=== PATIENT | female | born 1940 | race Caucasian/White ===

== ENCOUNTER 2016-12-21 22:47 | Observation (INO) | payer MEDICARE, OTHER ==
[~2016-12-21 22:47] MED LIST: Naloxone 0.4 MG/ML SDV IVPUSH ONE
[2016-12-21] MEDS ORDERED: Naloxone 0.4 MG/ML SDV ONE (22:54)
[2016-12-21 23:29] LABS: CHLORIDE,CL 99 mmol/L (98-107); SODIUM,NA 135 mmol/L (136-145)
--- NOTE | 2016-12-21 23:35 | EDM.PDOC ---
ED HPI GENERAL MEDICAL PROBLEM - General Chief Complaint: General Stated Complaint: lethargy Time Seen by Provider: 12/21/16 23:10 Source of Information: Reports: Patient, Family History Limitations: Reports: No Limitations - History of Present Illness INITIAL COMMENTS - FREE TEXT/NARRATIVE: Patient was brought in by EMS after her called for assistance due to patient's complaining of headache/poor equilibrium, fatigue. Took clonazepam and 45mg Restoril at 9pm. Denies taking extra medication. Family notes that in past she had similar issues when overusing clonazepam. Both patient and family say that she has had URI type complaints this past weeks, including sinus congestion and cough. Former smoker, quit "years ago". Denies need for any inhalers. Has had bilateral frontal headache for several days. Also "buzzing" sound in ears at times. Admits to losing balance three times over the last few days when she tries to back up when standing. Fell but denies injury. Denies vision change, ear pain, sore throat. Wears dentures. Has cough, some congestion. Denies wheezing/SOB. No new pain other than the headache. Denies GI and changes. No focal neuro changes/weakness per patient. No one else sick at home. - Related Data Allergies Allergy/AdvReac Type Severity Reaction Status Date / Time No Known Allergies Allergy Verified 05/18/13 19:32 Home Meds: Home Meds ClonazePAM [KlonoPIN] 0.5 mg PO BID 05/18/13 [History] Diltiazem HCl [Diltiazem 12Hr ER] 120 mg PO DAILY 05/18/13 [History] Lutein/Minerals/Vit A,C & E [Ocuvite] 2 tab PO DAILY 05/18/13 [History] Metoprolol Tartrate 25 mg PO DAILY 05/18/13 [History] Temazepam [Restoril] 45 mg PO BEDTIME PRN 05/18/13 [History] Calcium Carbonate/Vitamin D3 [Calcium 500 + Vit D 400] 1 tab PO DAILY 12/21/16 [ History] Digoxin [Digox] 125 mcg PO DAILY 12/21/16 [History] Lisdexamfetamine Dimesylate [Vyvanse] 50 mg PO DAILY 12/21/16 [History] Multivitamin [Multivitamins] 1 cap PO DAILY 12/21/16 [History] Vilazodone Hydrochloride [Viibryd] 40 mg PO BID 12/21/16 [History] Warfarin [Coumadin] 5 mg PO ASDIRECTED 12/21/16 [History] Ascorbic Acid [Vitamin C] 500 mg PO DAILY 12/22/16 [History] Melatonin 5 mg PO BEDTIME 12/22/16 [History] Past Medical History HEENT History: Reports: Macular Degeneration Cardiovascular History: Reports: Afib, High Cholesterol, Hypertension, Other ( See Below) (aortic valve insufficiency) Gastrointestinal History: Reports: Other (See Below) (History gastric bypass) Musculoskeletal History: Reports: Osteoarthritis, Osteoporosis Psychiatric History: Reports: Anxiety, Depression Hematologic History: Reports: B12 Deficiency Social & Family History - Tobacco Use Years of Tobacco use: 30 (Stopped on 03/31/1999) Used Tobacco, but Quit: Yes Month Tobacco Last Used: 6 Second Hand Smoke Exposure: No - Alcohol Use Days Per Week of Alcohol Use: 0 (Occasional wine for holidays) - Recreational Drug Use Recreational Drug Use: No - Living Situation & Occupation Living situation: Reports: , with Family Occupation: Retired ED ROS GENERAL - Review of Systems Review Of Systems: See Below Constitutional: Reports: Fatigue. Denies: Fever, Chills, Malaise, Night Sweats , Diaphoresis, Decreased Appetite, Weight Loss, Weight Gain HEENT: Reports: Rhinitis, Sinus Problem, Vertigo, Other (buzzing sound in ears at times). Denies: Ear Pain, Eye Pain, Throat Pain, Throat Swelling, Vision Change Respiratory: Reports: Cough, Other (congested but no reported sputum). Denies: Shortness of Breath, Wheezing, Pleuritic Chest Pain Cardiovascular: Denies: Chest Pain, Dyspnea on Exertion, Edema, Palpitations, Syncope GI/Abdominal: Reports: No Symptoms : Reports: No Symptoms Musculoskeletal: Reports: No Symptoms Skin: Reports: No Symptoms Neurological: Reports: Dizziness, Headache, Difficulty Walking (backwards). Denies: Confusion, Numbness, Paresthesia, Tingling, Tremors, Trouble Speaking, Change in Speech Psychiatric: Reports: No Symptoms Hematologic/Lymphatic: Reports: No Symptoms ED EXAM, GENERAL - Physical Exam Exam: See Below Exam Limited By: No Limitations General Appearance: Alert, No Apparent Distress, Obese, Other (disheveled appearance) Eye Exam: Bilateral Eye: EOMI, Other (initially both pupils pinpoint and minimally reactive. No nystagmus noted. Pupils 4mm after receiving Narcan. Equal. reactive. ) Ears: Normal External Exam, Normal Canal, Hearing Grossly Normal, Normal TMs Nose: Normal Inspection, Normal Mucosa, No Blood Throat/Mouth: Normal Inspection, Normal Lips, Normal Oropharynx, Normal Voice, No Airway Compromise, Other (dentures) Head: Atraumatic, Normocephalic Neck: Normal Inspection, Supple, Non-Tender, Full Range of Motion. No: Lymphadenopathy (L), Lymphadenopathy (R) Respiratory/Chest: No Respiratory Distress, Lungs Clear, Normal Breath Sounds, No Accessory Muscle Use, Other (some congestion noted when coughing. ) Cardiovascular: Normal Peripheral Pulses, Regular Rate, Rhythm, No Edema, No Murmur Peripheral Pulses: 2+: Radial (L), Radial (R), Dorsalis Pedis (L), Dorsalis Pedis (R) GI/Abdominal: Normal Bowel Sounds, Soft, Non-Tender, No Mass (Female) Exam: Deferred Rectal (Female) Exam: Deferred Back Exam: Normal Inspection. No: CVA Tenderness (L), CVA Tenderness (R), Muscle Spasm, Paraspinal Tenderness, Vertebral Tenderness Extremities: Normal Range of Motion, Non-Tender, No Pedal Edema, Normal Capillary Refill Neurological: Alert, Oriented, CN II-XII Intact, Normal Cognition, Normal Reflexes, No Motor/Sensory Deficits, Other (Speech slightly slow, family not reporting that this is different from patient's baseline.) Psychiatric: Normal Affect, Normal Mood Skin Exam: Warm, Dry, Intact, Normal Color, Other (small abrasion left arm) Course - Orders/Labs/Meds Orders: Active Orders 24 hr Category Date Time Status Peripheral IV Care [RC] . DIRECTED Care 12/21/16 23:12 Ordered Head wo Cont [CT] Stat Exams 12/21/16 23:24 Ordered AMMONIA VENOUS [CHEM] Stat Lab 12/22/16 00:07 Ordered Sodium Chloride 0.9% [Saline Flush] Med 12/21/16 23:12 Ordered 10 ml FLUSH ASDIRECTED PRN Peripheral IV Insertion Adult [OM.PC] Stat Oth 12/21/16 23:12 Ordered Medication Orders Sodium Chloride (Saline Flush) 10 ml FLUSH ASDIRECTED PRN PRN Reason: Keep Vein Open Labs: Laboratory Tests 12/21/16 12/21/16 12/21/16 Range/Units 23:00 23:00 23:00 WBC 10.0 (4.0-10.2) K/uL RBC 3.59 L (3.77-5.09) M/uL Hgb 9.2 L D (11.7-15.5) g/dL Hct 29.4 L (34.0-46.0) % MCV 81.9 L D (84.0-98.0) fL MCH 25.6 L (28.2-33.3) pg MCHC 31.3 L (31.7-36.0) g/dL RDW 16.0 H (11.2-14.1) % Plt Count 346 D (150-350) K/uL Neut % (Auto) 73.9 (45.0-80.0) % Lymph % (Auto) 15.9 (10.0-50.0) % Elbert % (Auto) 9.6 (2.0-14.0) % Eos % (Auto) 0.4 (0.0-5.0) % Baso % (Auto) 0.2 (0.0-2.0) % Neut # (Auto) 7.37 H (1.40-7.00) K/uL Lymph # (Auto) 1.59 (0.50-3.50) K/uL Elbert # (Auto) 0.96 (0.00-1.00) K/uL Eos # (Auto) 0.04 (0.00-0.50) K/uL Baso # (Auto) 0.02 (0.00-0.20) K/uL PT 51.5 H D (9.8-11.7) SEC INR 4.5 Sodium 135 L (136-145) mmol/L Potassium 4.2 (3.5-5.1) mmol/L Chloride 99 (98-107) mmol/L Carbon Dioxide 29.4 (21.0-32.0) mmol/L BUN 11 (7-18) mg/dL Creatinine 0.72 (0.51-1.17) mg/dL Est Cr Clr Drug Dosing TNP Estimated GFR (MDRD) > 60 mL/min Glucose 111 H (74-106) mg/dL Calcium 9.5 (8.5-10.1) mg/dL Total Bilirubin 0.5 (0.2-1.0) mg/dL AST 418 H (15-37) U/L ALT 371 H (12-78) U/L Alkaline Phosphatase 405 H (46-116) IU/L Total Protein 6.7 (6.4-8.2) g/dL Albumin 3.0 L (3.4-5.0) g/dL Specimen Type Urine Color Urine Appearance Urine pH (5.0-9.0) Ur Specific [place] (1.005-1.030) Urine Protein (NEGATIVE) mg/dL Urine Glucose (UA) (NEGATIVE) mg/dL Urine Ketones (NEGATIVE) mg/dL Urine Occult Blood (NEGATIVE) Urine Nitrite (NEGATIVE) Urine Bilirubin (NEGATIVE) Urine Urobilinogen (0.2-1.0) E.U./dL Ur Leukocyte Esterase (NEGATIVE) Urine RBC /HPF Urine WBC /HPF Ur Epithelial Cells /LPF Urine Bacteria (NONE TO FEW) /HPF Digoxin 0.60 L (0.90-2.00) ng/mL 12/21/16 Range/Units 23:40 WBC (4.0-10.2) K/uL RBC (3.77-5.09) M/uL Hgb (11.7-15.5) g/dL Hct (34.0-46.0) % MCV (84.0-98.0) fL MCH (28.2-33.3) pg MCHC (31.7-36.0) g/dL RDW (11.2-14.1) % Plt Count (150-350) K/uL Neut % (Auto) (45.0-80.0) % Lymph % (Auto) (10.0-50.0) % Elbert % (Auto) (2.0-14.0) % Eos % (Auto) (0.0-5.0) % Baso % (Auto) (0.0-2.0) % Neut # (Auto) (1.40-7.00) K/uL Lymph # (Auto) (0.50-3.50) K/uL Elbert # (Auto) (0.00-1.00) K/uL Eos # (Auto) (0.00-0.50) K/uL Baso # (Auto) (0.00-0.20) K/uL PT (9.8-11.7) SEC INR Sodium (136-145) mmol/L Potassium (3.5-5.1) mmol/L Chloride (98-107) mmol/L Carbon Dioxide (21.0-32.0) mmol/L BUN (7-18) mg/dL Creatinine (0.51-1.17) mg/dL Est Cr Clr Drug Dosing Estimated GFR (MDRD) mL/min Glucose (74-106) mg/dL Calcium (8.5-10.1) mg/dL Total Bilirubin (0.2-1.0) mg/dL AST (15-37) U/L ALT (12-78) U/L Alkaline Phosphatase (46-116) IU/L Total Protein (6.4-8.2) g/dL Albumin (3.4-5.0) g/dL Specimen Type Urinvoid Urine Color Yellow Urine Appearance Clear Urine pH 7.0 (5.0-9.0) Ur Specific [place] 1.010 (1.005-1.030) Urine Protein Negative (NEGATIVE) mg/dL Urine Glucose (UA) Negative (NEGATIVE) mg/dL Urine Ketones Negative (NEGATIVE) mg/dL Urine Occult Blood Negative (NEGATIVE) Urine Nitrite Negative (NEGATIVE) Urine Bilirubin Negative (NEGATIVE) Urine Urobilinogen 0.2 (0.2-1.0) E.U./dL Ur Leukocyte Esterase Trace H (NEGATIVE) Urine RBC 0-5 /HPF Urine WBC 0-5 /HPF Ur Epithelial Cells Occasional /LPF Urine Bacteria Occasional (NONE TO FEW) /HPF Digoxin (0.90-2.00) ng/mL Meds: Medications Generic Name Dose Route Start Last Admin Trade Name Freq PRN Reason Stop Dose Admin Sodium Chloride 10 ml 12/21/16 23:12 Saline Flush FLUSH ASDIRECTED PRN Keep Vein Open Discontinued Medications Generic Name Dose Route Start Last Admin Trade Name Freq PRN Reason Stop Dose Admin Naloxone HCl Confirm 12/21/16 22:54 Narcan Administered 12/21/16 22:55 Dose 0.4 mg .ROUTE .STK-MED ONE - Radiology Interpretation CT Results Date: 12/21/16 (No acute changes on head CT) CT Results Time: 23:55 - Re-Assessments/Exams Free Text/Narrative Re-Assessment/Exam: 12/22/16 00:19 Patient admitted for further observation for changes as well as continued neuro checks. May have some degree of contribution from her evening medications, including Clonazepam in regards to tonight's complaints. We did note quick improvement in pupils and level of interaction after patient received Narcan. She has also had cold symptoms for almost a week, which could contribute to labrynthitis type complaints. WBC normal. Hgb just above 9. Patient does not know what her usual range is. Has had gastric bypass surgery and also has notation that she has had B12 deficiency in past. increased LFTs noted. Patient says that is new. INR above ideal range, digoxin below ideal range. Plan at this time is to admit the patient to observation. Will have patient sign release in order to obtain copies of most recent labs from [facility]. Neuro checks will be scheduled. Meclizine ordered. Anticipate observation overnight, with consideration of transfer to [facility] tomorrow if her labs are showing significant deviations from her usual pattern. Patient is safe for general supervision. Departure - Departure Time of Disposition: 00:32 Disposition: Refer to Observation Condition: Good Clinical Impression: Dizziness, nonspecific, Respiratory tract infection, Elevated INR Anemia Qualifiers: Anemia type: B12 deficiency Vitamin B12 deficiency anemia type: unspecified B12 deficiency Qualified Code(s): D51.9 - Vitamin B12 deficiency anemia, unspecified - Discharge Information Referrals: Lilliam Lake PA [Primary Care Provider] - Forms: ED Department Discharge - Problem List & Annotations (1) Anemia SNOMED Code(s): 304241322 Code(s): D64.9 - ANEMIA, UNSPECIFIED Status: Chronic Priority: Low Current Visit: Yes Annotation/Comment:: Microcytic anemia noted, not macrocytic as would be expected with B12 deficiency. May be due to chronic health issues. Will request Fe level. Qualifiers: Qualified Code(s): D51.9 - Vitamin B12 deficiency anemia, unspecified (2) Dizziness, nonspecific SNOMED Code(s): 172146472, 163118200 Code(s): R42 - DIZZINESS AND GIDDINESS Status: Acute Priority: High Current Visit: Yes Annotation/Comment:: May be related to recent URI, cannot rule out contribution from medications (3) Elevated INR SNOMED Code(s): 128733516 Code(s): R79.1 - ABNORMAL COAGULATION PROFILE Status: Acute Priority: Medium Current Visit: Yes (4) Respiratory tract infection SNOMED Code(s): 050699685, 659617187, 008541447 Code(s): J98.8 - OTHER SPECIFIED RESPIRATORY DISORDERS Status: Acute Priority: Medium Current Visit: Yes (5) Hypertension SNOMED Code(s): 23080857 Code(s): I10 - ESSENTIAL (PRIMARY) HYPERTENSION Status: Chronic Priority : Low Current Visit: No (6) Anxiety and depression SNOMED Code(s): 169380972 Code(s): F41.8 - OTHER SPECIFIED ANXIETY DISORDERS Status: Chronic Priority: Low Current Visit: No (7) Insomnia SNOMED Code(s): 644578367 Code(s): G47.00 - INSOMNIA, UNSPECIFIED Status: Chronic Priority: Low Current Visit: No (8) Afib SNOMED Code(s): 59238910 Code(s): I48.91 - UNSPECIFIED ATRIAL FIBRILLATION Status: Chronic Priority: Low Current Visit: No (9) Osteoporosis SNOMED Code(s): 38828206 Code(s): M81.0 - AGE-RELATED OSTEOPOROSIS W/O CURRENT PATHOLOGICAL FRACTURE Status: Chronic Priority: Low Current Visit: No (10) Osteoarthritis SNOMED Code(s): 332155735 Code(s): M19.90 - UNSPECIFIED OSTEOARTHRITIS, UNSPECIFIED SITE Status: Chronic Priority: Low Current Visit: No (11) B12 deficiency SNOMED Code(s): 158875122 Code(s): E53.8 - DEFICIENCY OF OTHER SPECIFIED B GROUP VITAMINS Status: Chronic Priority: Low Current Visit: Yes (12) H/O gastric bypass SNOMED Code(s): 418451082, 00007776, 860280046 Code(s): Z98.890 - OTHER SPECIFIED POSTPROCEDURAL STATES Status: Chronic Priority: Low Current Visit: No - Problem List Review Problem List Initiated/Reviewed/Updated: Yes - My Orders Last 24 Hours: My Active Orders 12/21/16 23:12 Peripheral IV Care [RC] . DIRECTED Sodium Chloride 0.9% [Saline Flush] 10 ml FLUSH ASDIRECTED PRN Peripheral IV Insertion Adult [OM.PC] Stat 12/21/16 23:24 Head wo Cont [CT] Stat 12/22/16 00:07 AMMONIA VENOUS [CHEM] Stat - Assessment/Plan Admission H&P: Please use this note as an admission H&P Last 24 Hours: My Active Orders 12/21/16 23:12 Peripheral IV Care [RC] . DIRECTED Sodium Chloride 0.9% [Saline Flush] 10 ml FLUSH ASDIRECTED PRN Peripheral IV Insertion Adult [OM.PC] Stat 12/21/16 23:24 Head wo Cont [CT] Stat 12/22/16 00:07 AMMONIA VENOUS [CHEM] Stat Assessment:: Fatigue, dizziness, recent URI, falls in patient also noted to have elevated LFTs and INR/PT, as well as subtheraputic Digoxin levels. Suspect viral URI. Patient denies fevers/chills. WBC normal. Plan: Neuro checks q4hr. Continue observation for changes. Meclizine and small amount of IV fluids planned. Will see if we can obtain recent info for labs and visits to [facility] to see if tonight's labs reflect any sudden changes. May need to consider transfer of patient to [facility] if symptoms continue and lab changes are acute.
[2016-12-22] MEDS ORDERED: Sodium Chloride 0.9% 1,000 ML IV ONE (00:54)
[2016-12-22] MEDS ORDERED: Digoxin 250 MCG Tab PO ONE (00:57)
[2016-12-22] MEDS ORDERED: Meclizine 25 MG Tab PO PRN (00:58)
[2016-12-22] MEDS: ClonazePAM 0.5 MG Tab PO SCH ×3 (01:50→17:07)
[2016-12-22] MEDS: Melatonin 3 MG Tab PO SCH ×2 (01:50→20:29)
[2016-12-22] MEDS: Sodium Chloride 0.9% 10 ML Syringe FLUSH PRN ×2 (02:06→21:29)
[2016-12-22] MEDS ORDERED: LISDEXAMFETAMINE DIMESYLATE 50 MG PO SCH (08:00)
[2016-12-22] MEDS ORDERED: VILAZODONE HYDROCHLORIDE 40 MG PO SCH ×2 (08:00→09:00)
[2016-12-22] MEDS: Digoxin 125 MCG Tab PO SCH (08:36)
[2016-12-22] MEDS: Diltiazem 120 MG Cap.CD PO SCH (08:37)
[2016-12-22] MEDS: Metoprolol Tartrate 25 MG Tab PO SCH (08:37)
[2016-12-22 09:24] LABS: CHLORIDE,CL 105 mmol/L (98-107); SODIUM,NA 140 mmol/L (136-145)
[2016-12-22] MEDS ORDERED: traMADol 50 MG Tab PO ONE (09:50)
[2016-12-22] MEDS: LISDEXAMFETAMINE DIMESYLATE 50 MG PO SCH (10:23)
[2016-12-22] MEDS: VILAZODONE HYDROCHLORIDE 40 MG PO SCH (10:24)
--- NOTE | 2016-12-22 15:16 | PCM.PN ---
- General Info Date of Service: 12/22/16 Admission Dx/Problem (Free Text): Admitted due to altered mental status. Also noted to have elevated LFTs, anemia as well as complaint of lightheadedness and recent falls. Recent URI symptoms. Noted to have elevated PT/INR while in ER. Mild improvement after Narcan in ER. Functional Status: Reports: Pain Controlled (Has some soreness left chest wall that she thinks was from one of her falls, improved with Tramadol. ), Tolerating Diet, Ambulating, Urinating. Denies: New Symptoms Pain Score: 2 - Review of Systems General: Reports: Fatigue. Denies: Fever, Weakness, Malaise, Chills, Night Sweats, Appetite HEENT: Reports: Headaches (frontal), Sinus Congestion, Rhinitis. Denies: Ear Pain, Eye Pain, Sore Throat, Visual Changes Pulmonary: Reports: Cough, Other (congested cough, no sputum). Denies: Shortness of Breath, Pleuritic Chest Pain, Hemoptysis, Wheezing Cardiovascular: Reports: Lightheadedness. Denies: Chest Pain, Palpitations, Dyspnea on Exertion, Orthopnea, Edema Gastrointestinal: Reports: No Symptoms Genitourinary: Reports: No Symptoms Musculoskeletal: Denies: Neck Pain, Shoulder Pain, Arm Pain, Hand Pain, Back Pain, Leg Pain, Foot Pain, Joint Pain, Joint Swelling Skin: Reports: Bruising (Some bruising on left side from falls. ) Neurological: Reports: Dizziness, Headache. Denies: Confusion, Numbness, Paresthesia, Seizure, Syncope, Tingling, Tremors, Weakness Psychiatric: Reports: No Symptoms - Patient Data Vitals - Most Recent: Last Vital Signs Temp 36.8 C 12/22/16 12:00 Pulse 68 12/22/16 12:00 Resp 16 12/22/16 12:00 BP 124/65 12/22/16 12:00 Pulse Ox 100 12/22/16 12:00 Weight - Most Recent: 66.088 kg I&O - Last 24 Hours: Intake & Output 12/22/16 12/22/16 12/22/16 06:59 14:59 22:59 Intake Total 300 2320 Output Total 1500 Balance -1200 2320 Lab Results Last 24 Hours: Laboratory Results - last 24 hr 09/24/17 09/24/17 09/24/17 Range/Units 08:00 08:00 08:00 WBC (4.0-10.2) K/uL RBC (3.77-5.09) M/uL Hgb (11.7-15.5) g/dL Hct (34.0-46.0) % MCV (84.0-98.0) fL MCH (28.2-33.3) pg MCHC (31.7-36.0) g/dL RDW (11.2-14.1) % Plt Count (150-350) K/uL Neut % (Auto) (45.0-80.0) % Lymph % (Auto) (10.0-50.0) % [place] % (Auto) (2.0-14.0) % Eos % (Auto) (0.0-5.0) % Baso % (Auto) (0.0-2.0) % Neut # (Auto) (1.40-7.00) K/uL Lymph # (Auto) (0.50-3.50) K/uL [place] # (Auto) (0.00-1.00) K/uL Eos # (Auto) (0.00-0.50) K/uL Baso # (Auto) (0.00-0.20) K/uL PT 42.2 H (9.8-11.7) SEC INR 3.7 Sodium (136-145) mmol/L Potassium (3.5-5.1) mmol/L Chloride (98-107) mmol/L Carbon Dioxide (21.0-32.0) mmol/L BUN (7-18) mg/dL Creatinine (0.51-1.17) mg/dL Est Cr Clr Drug Dosing mL/min Estimated GFR (MDRD) mL/min Glucose (74-106) mg/dL Calcium (8.5-10.1) mg/dL Iron 33 L (50-175) ug/dL TIBC 319 (250-450) ug/dL % Saturation 10.68905 Ferritin (8-388) ng/mL Total Bilirubin (0.2-1.0) mg/dL AST (15-37) U/L ALT (12-78) U/L Alkaline Phosphatase (46-116) IU/L Ammonia 10 L (11-32) umol/L Total Protein (6.4-8.2) g/dL Albumin (3.4-5.0) g/dL 12/22/16 12/22/16 12/22/16 Range/Units 08:00 08:00 08:00 WBC 7.4 (4.0-10.2) K/uL RBC 3.43 L (3.77-5.09) M/uL Hgb 8.8 L (11.7-15.5) g/dL Hct 28.4 L (34.0-46.0) % MCV 82.8 L (84.0-98.0) fL MCH 25.7 L (28.2-33.3) pg MCHC 31.0 L (31.7-36.0) g/dL RDW 16.3 H (11.2-14.1) % Plt Count 330 (150-350) K/uL Neut % (Auto) 67.4 (45.0-80.0) % Lymph % (Auto) 21.1 (10.0-50.0) % [place] % (Auto) 9.8 (2.0-14.0) % Eos % (Auto) 1.6 (0.0-5.0) % Baso % (Auto) 0.1 (0.0-2.0) % Neut # (Auto) 4.97 (1.40-7.00) K/uL Lymph # (Auto) 1.56 (0.50-3.50) K/uL [place] # (Auto) 0.72 (0.00-1.00) K/uL Eos # (Auto) 0.12 (0.00-0.50) K/uL Baso # (Auto) 0.01 (0.00-0.20) K/uL PT (9.8-11.7) SEC INR Sodium 140 (136-145) mmol/L Potassium 4.2 (3.5-5.1) mmol/L Chloride 105 (98-107) mmol/L Carbon Dioxide 28.8 (21.0-32.0) mmol/L BUN 7 (7-18) mg/dL Creatinine 0.62 (0.51-1.17) mg/dL Est Cr Clr Drug Dosing 65.85 mL/min Estimated GFR (MDRD) > 60 mL/min Glucose 89 (74-106) mg/dL Calcium 9.0 (8.5-10.1) mg/dL Iron (50-175) ug/dL TIBC (250-450) ug/dL % Saturation Ferritin 79 (8-388) ng/mL Total Bilirubin 0.4 (0.2-1.0) mg/dL AST 232 H (15-37) U/L ALT 276 H (12-78) U/L Alkaline Phosphatase 350 H (46-116) IU/L Ammonia (11-32) umol/L Total Protein 5.9 L (6.4-8.2) g/dL Albumin 2.6 L (3.4-5.0) g/dL Med Orders - Current: Current Medications Albuterol/Ipratropium (Duoneb 3.0-0.5 Mg/3 Ml) 3 ml NEB Q6HRRT [facility] Clonazepam (Klonopin) 0.5 mg PO BID [facility] Last Admin: 12/22/16 08:20 Dose: Not Given Digoxin (Lanoxin) 125 mcg PO DAILY [facility] Last Admin: 12/22/16 08:36 Dose: 125 mcg Diltiazem HCl (Cardizem Cd) 120 mg PO DAILY [facility] Last Admin: 12/22/16 08:37 Dose: 120 mg Ferrous Sulfate (Slow Release Iron) 160 mg PO DAILY [facility] Meclizine HCl (Antivert) 25 mg PO Q6H PRN PRN Reason: Dizziness Melatonin (Melatonin) 5 mg PO BEDTIME [facility] Last Admin: 12/22/16 01:50 Dose: Not Given Metoprolol Tartrate (Lopressor) 25 mg PO DAILY [facility] Last Admin: 12/22/16 08:37 Dose: 25 mg Non-Formulary Medication (Lisdexamfetamine Dimesylate [Vyvanse]) 0 mg PO DAILY [facility] Last Admin: 12/22/16 10:23 Dose: 50 mg Non-Formulary Medication (Vilazodone Hydrochloride [Viibryd]) 0 mg PO DAILY [facility] Last Admin: 12/22/16 10:24 Dose: 40 mg Sodium Chloride (Saline Flush) 10 ml FLUSH ASDIRECTED PRN PRN Reason: Keep Vein Open Last Admin: 12/22/16 02:06 Dose: 10 ml Discontinued Medications Digoxin (Lanoxin) 250 mcg PO ONETIME ONE Stop: 12/22/16 00:58 Last Admin: 12/22/16 02:04 Dose: 250 mcg Sodium Chloride (Normal Saline) 1,000 mls @ 200 mls/hr IV .BOLUS ONE Stop: 12/22/16 05:53 Last Admin: 12/22/16 02:03 Dose: 200 mls/hr Naloxone HCl (Narcan) Confirm Administered Dose 0.4 mg .ROUTE .STK-MED ONE Stop: 12/21/16 22:55 Last Admin: 12/21/16 22:58 Dose: Not Given Naloxone HCl (Narcan) 0.4 mg IVPUSH ONETIME ONE Stop: 12/21/16 22:46 Last Admin: 12/21/16 22:58 Dose: 0.4 mg Non-Formulary Medication (Lisdexamfetamine Dimesylate [Vyvanse]) 50 mg PO DAILY [facility] Last Admin: 12/22/16 14:41 Dose: Not Given Non-Formulary Medication (Vilazodone Hydrochloride [Viibryd]) 40 mg PO BID [facility] Last Admin: 12/22/16 14:41 Dose: Not Given Non-Formulary Medication (Vilazodone Hydrochloride [Viibryd]) 40 mg PO DAILY [facility] Last Admin: 12/22/16 14:42 Dose: Not Given Non-Formulary Medication (Vilazodone Hydrochloride [Viibryd]) 0 mg PO DAILY [facility] Non-Formulary Medication (Lisdexamfetamine Dimesylate [Vyvanse]) 0 mg PO DAILY [facility] Tramadol HCl (Ultram) 50 mg PO ONETIME ONE Stop: 12/22/16 09:51 Last Admin: 12/22/16 10:19 Dose: 50 mg - Exam Quality Assessment: Supplemental Oxygen General: Alert, Oriented, Cooperative, Other (Improved level of alertness and interaction noted) HEENT: EOMI Neck: Supple Lungs: Normal Respiratory Effort, Decreased Breath Sounds (throughout), Rhonchi (few, sparse). No: Crackles, Rales, Rub, Stridor, Wheezing Cardiovascular: Regular Rate, Regular Rhythm GI/Abdominal Exam: Normal Bowel Sounds, Soft, Non-Tender, No Distention (Female) Exam: Deferred Back Exam: No: CVA Tenderness (L), CVA Tenderness (R), Muscle Spasm, Paraspinal Tenderness, Vertebral Tenderness Extremities: Normal Range of Motion, Non-Tender, No Pedal Edema, Normal Capillary Refill Peripheral Pulses: 2+: Radial (L), Radial (R) Skin: Warm, Dry, Ecchymosis (has some scattered bruises/mild on left ) Neurological: No New Focal Deficit, Normal Speech, Strength Equal Bilateral, Sensation Intact, Other (Speech improved compared to last night, enunciates better. ) Psy/Mental Status: Alert, Normal Affect, Normal Mood - Problem List & Annotations (1) Anemia SNOMED Code(s): 261048218 Code(s): D64.9 - ANEMIA, UNSPECIFIED Status: Chronic Priority: Low Current Visit: Yes Qualifiers: Anemia type: iron deficiency Iron deficiency anemia type: unspecified iron deficiency Qualified Code(s): D50.9 - Iron deficiency anemia, unspecified Annotation/Comment:: Low Fe noted. Supplementation ordered. Slight decrease to 8.8 today, likely dilutional given IV fluids. Recheck of labs planned in AM. Occult blood screen requested. (2) Dizziness, nonspecific SNOMED Code(s): 206925526, 131823245 Code(s): R42 - DIZZINESS AND GIDDINESS Status: Acute Priority: High Current Visit: Yes Annotation/Comment:: May be related to recent URI, cannot rule out contribution from medications. Improved today. (3) Elevated INR SNOMED Code(s): 007726239 Code(s): R79.1 - ABNORMAL COAGULATION PROFILE Status: Acute Priority: Medium Current Visit: Yes Annotation/Comment:: Improved PT/INR today. (4) Respiratory tract infection SNOMED Code(s): 963528094, 166607913, 109484180 Code(s): J98.8 - OTHER SPECIFIED RESPIRATORY DISORDERS Status: Acute Priority: Medium Current Visit: Yes Onset Date: ~12/18/16 Annotation/ Comment:: Continue to feel that recent cough/sinus congestion is likely viral. WBC normal. No fevers. Xray of chest performed today. Questionable changes noted in right lung that could suggest fibrosis vs infiltrate. Patient did have radiation treatments to that side for left sided breast cancer in past. (5) Hypertension SNOMED Code(s): 35197905 Code(s): I10 - ESSENTIAL (PRIMARY) HYPERTENSION Status: Chronic Priority : Low Current Visit: No (6) Anxiety and depression SNOMED Code(s): 013149402 Code(s): F41.8 - OTHER SPECIFIED ANXIETY DISORDERS Status: Chronic Priority: Low Current Visit: No (7) Insomnia SNOMED Code(s): 988910855 Code(s): G47.00 - INSOMNIA, UNSPECIFIED Status: Chronic Priority: Low Current Visit: No (8) Afib SNOMED Code(s): 38378008 Code(s): I48.91 - UNSPECIFIED ATRIAL FIBRILLATION Status: Chronic Priority: Low Current Visit: No (9) Osteoporosis SNOMED Code(s): 20433802 Code(s): M81.0 - AGE-RELATED OSTEOPOROSIS W/O CURRENT PATHOLOGICAL FRACTURE Status: Chronic Priority: Low Current Visit: No (10) Osteoarthritis SNOMED Code(s): 779314609 Code(s): M19.90 - UNSPECIFIED OSTEOARTHRITIS, UNSPECIFIED SITE Status: Chronic Priority: Low Current Visit: No (11) B12 deficiency SNOMED Code(s): 517766123 Code(s): E53.8 - DEFICIENCY OF OTHER SPECIFIED B GROUP VITAMINS Status: Chronic Priority: Low Current Visit: Yes (12) H/O gastric bypass SNOMED Code(s): 517411632, 07379163, 150411399 Code(s): Z98.890 - OTHER SPECIFIED POSTPROCEDURAL STATES Status: Chronic Priority: Low Current Visit: No - Problem List Review Problem List Initiated/Reviewed/Updated: Yes - My Orders Last 24 Hours: My Active Orders 12/22/16 00:50 Patient Status [ADT] Routine Up With Assistance [RC] ASDIRECTED Vital Signs [RC] Q8HR Resuscitation Status Routine 12/22/16 00:52 Oxygen Therapy [RC] 23 Pulse Oximetry [RC] PRN 12/22/16 00:55 OCCULT BLOOD DIAGNOSTIC [OP] Routine 12/22/16 00:58 Meclizine [Antivert] 25 mg PO Q6H PRN 12/22/16 01:15 ClonazePAM [KlonoPIN] 0.5 mg PO BID Melatonin 5 mg PO BEDTIME 12/22/16 08:00 IRON PNL (FE, TIBC, RITO, %SAT) [REF] Routine Digoxin [Lanoxin] 125 mcg PO DAILY Diltiazem [Cardizem CD] 120 mg PO DAILY Metoprolol Tartrate [Lopressor] 25 mg PO DAILY 12/22/16 09:49 Ribs 2V w Chest Lt [CR] Routine 12/22/16 10:15 Lisdexamfetamine Dimesylate [Vyvanse] 0 mg PO DAILY Vilazodone Hydrochloride [Viibryd] 0 mg PO DAILY 12/22/16 15:03 Neuro Check [RC] BID 12/22/16 15:13 RT Aerosol Therapy [RC] ASDIRECTED 12/22/16 15:15 Albuterol/Ipratropium [DuoNeb 3.0-0.5 MG/3 ML] 3 ml NEB Q6HRRT Ferrous Sulfate [Slow Release Iron] 160 mg PO DAILY 12/22/16 Breakfast Heart Healthy Diet [DIET] 12/23/16 05:11 COMPREHENSIVE METABOLIC PN,CMP [CHEM] AM DIGOXIN [CHEM] AM INR,PT,PROTHROMBIN TIME [COAG] AM MAGNESIUM [CHEM] AM VIT D 1,25 DIHYDROXYY [REF] Routine 12/23/16 05:15 CBC WITH AUTO DIFF [HEME] AM - Assessment Assessment:: Improved LOC noted today by both staff and family. Patient also feels better. Admitted to taking a new OTC cold preparation for her URI yesterday. Given the improvement noted overnight with patient's mild slurred speech and level of interaction it is strongly suspected that much of what we observed was medication-induced. Anemia persists, Fe supplementation ordered. Will see if DuoNebs help patient's cough. LFTs also significantly improved today. May have viral cause to their elevation , may also be related to the cold medication that she took. - Plan Plan:: Recheck labs tomorrow, including LFTs, INR, Digoxin. Continue BID neuro checks. PT/OT consult tomorrow. Probably discharge home tomorrow with follow up at [facility] for continued care.
[2016-12-22] MEDS: Albuterol/Ipratropium 3.0-0.5 MG/3 ML Neb Soln NEB SCH ×2 (15:39→20:29)
[2016-12-22] MEDS: Ferrous Sulfate 160 MG TAB.ER PO SCH (15:39)
[2016-12-22] MEDS: Sodium Chloride 0.9% 10 ML Syringe FLUSH SCH (20:29)
[2016-12-22] MEDS ORDERED: traMADol 50 MG Tab PO PRN (20:35)
[2016-12-22] MEDS ORDERED: Azithromycin 500 MG in Sodium Chloride 0.9% 250 ML IV ONE (20:39)
[2016-12-22] MEDS ORDERED: cefTRIAXone 1 GM in Sodium Chloride 0.9% 100 ML IV ONE (20:39)
[2016-12-23] MEDS: Albuterol/Ipratropium 3.0-0.5 MG/3 ML Neb Soln NEB SCH ×3 (01:48→14:38)
[2016-12-23 07:45] LABS: CHLORIDE,CL 105 mmol/L (98-107); SODIUM,NA 140 mmol/L (136-145)
[2016-12-23] MEDS ORDERED: LISDEXAMFETAMINE DIMESYLATE PO SCH (08:00)
[2016-12-23] MEDS ORDERED: VILAZODONE HYDROCHLORIDE PO SCH (08:00)
[2016-12-23 08:19] VITALS: BP 145/78
[2016-12-23] MEDS: Diltiazem 120 MG Cap.CD PO SCH (08:46)
[2016-12-23] MEDS: ClonazePAM 0.5 MG Tab PO SCH (08:47)
[2016-12-23] MEDS: Digoxin 125 MCG Tab PO SCH (08:48)
[2016-12-23] MEDS: LISDEXAMFETAMINE DIMESYLATE 50 MG PO SCH (08:49)
[2016-12-23] MEDS: Metoprolol Tartrate 25 MG Tab PO SCH (08:50)
[2016-12-23] MEDS: Sodium Chloride 0.9% 10 ML Syringe FLUSH SCH (08:50)
[2016-12-23] MEDS: Ferrous Sulfate 160 MG TAB.ER PO SCH (08:51)
[2016-12-23] MEDS: VILAZODONE HYDROCHLORIDE 40 MG PO SCH (08:52)
--- NOTE | 2016-12-23 13:50 | PCM.DCSUM1 ---
Discharge Summary - Hospital Course Brief History: Patient admitted for altered LOC, with noted elevated INR/LFTs - Discharge Data Discharge Date: 12/23/16 Discharge Disposition: Home, Self-Care 01 Condition: Good - Discharge Diagnosis/Problem(s) (1) Anemia SNOMED Code(s): 324723283 ICD Code: D64.9 - ANEMIA, UNSPECIFIED Status: Chronic Priority: Low Current Visit: Yes Problem Details: Low Fe noted. Supplementation ordered. Decrease to 8.6 today.. Qualifiers: Anemia type: iron deficiency Iron deficiency anemia type: unspecified iron deficiency Qualified Code(s): D50.9 - Iron deficiency anemia, unspecified (2) Dizziness, nonspecific SNOMED Code(s): 924668942, 590991549 ICD Code: R42 - DIZZINESS AND GIDDINESS Status: Acute Priority: High Current Visit: Yes Problem Details: May be related to recent URI, cannot rule out contribution from medications. Continues to be improved. Low Hgb also. (3) Elevated INR SNOMED Code(s): 880011596 ICD Code: R79.1 - ABNORMAL COAGULATION PROFILE Status: Acute Priority: Medium Current Visit: Yes Problem Details: At theraputic level today (4) Respiratory tract infection SNOMED Code(s): 947270847, 597951820, 271141875 ICD Code: J98.8 - OTHER SPECIFIED RESPIRATORY DISORDERS Status: Acute Priority: Medium Current Visit: Yes Onset Date: ~12/18/16 Problem Details : Continue to feel that recent cough/sinus congestion is likely viral. WBC normal. Patient started on antibiotics to cover for potential bacterial component due to noted low grade fever. Radiology review of chest films also noted changes in left lower lung and felt it could suggest atelectasis vs early infiltrates. (5) Hypertension SNOMED Code(s): 36885479 ICD Code: I10 - ESSENTIAL (PRIMARY) HYPERTENSION Status: Chronic Priority : Low Current Visit: No (6) Anxiety and depression SNOMED Code(s): 579934478 ICD Code: F41.8 - OTHER SPECIFIED ANXIETY DISORDERS Status: Chronic Priority: Low Current Visit: No (7) Insomnia SNOMED Code(s): 007840961 ICD Code: G47.00 - INSOMNIA, UNSPECIFIED Status: Chronic Priority: Low Current Visit: No (8) Afib SNOMED Code(s): 75555823 ICD Code: I48.91 - UNSPECIFIED ATRIAL FIBRILLATION Status: Chronic Priority: Low Current Visit: No (9) Osteoporosis SNOMED Code(s): 89421226 ICD Code: M81.0 - AGE-RELATED OSTEOPOROSIS W/O CURRENT PATHOLOGICAL FRACTURE Status: Chronic Priority: Low Current Visit: No (10) Osteoarthritis SNOMED Code(s): 083002799 ICD Code: M19.90 - UNSPECIFIED OSTEOARTHRITIS, UNSPECIFIED SITE Status: Chronic Priority: Low Current Visit: No (11) H/O gastric bypass SNOMED Code(s): 779907134, 10936484, 887362973 ICD Code: Z98.890 - OTHER SPECIFIED POSTPROCEDURAL STATES Status: Chronic Priority: Low Current Visit: No (12) Rib pain on left side SNOMED Code(s): 286993434 ICD Code: R07.81 - PLEURODYNIA Status: Acute Priority: Low Current Visit: Yes Problem Details: Patient has had left sided discomfort since admission that she feels started after one of her recent falls. Radiology noted mild deformity of 7th rib but is not certain if it could represent an acute fracture vs chronic condition. (13) Occult blood positive stool SNOMED Code(s): 44038146, 698792350 ICD Code: R19.5 - OTHER FECAL ABNORMALITIES Status: Acute Priority: High Current Visit: Yes Problem Details: No reported changes in stool color/ consistency per patient. No abdominal pain or GI complaints at this time. Scheduled for endoscopy this , 3 days from now. - Patient Summary/Data Complications: None Consults: Consultations 12/22/16 15:31 PT Evaluation and Treatment [CONS] Routine 12/22/16 15:32 OT Evaluation and Treatment [CONS] Routine Recommended Follow-up Testing/Procedures: Patient needs to follow up this week for recheck of Hgb, LFTs, and INR. Endoscopy scheduled for due to +Occult blood screen Has follow up appointment with primary provider for pre-op physical at 2pm in [place]. Hospital Course: Rapid improvement in LOC noted within 12 hours of admission. Strongly felt that medication interactions/over-medication and non-compliance contributed to complaints of slurred speech/lethargy/dizziness and falls. It was noted during patient's stay that multiple colors of pills were mixed together in some medication bottles. Patient said that she sometimes dumps new prescriptions in with the old. However, it was noted by Pharmacy that some medications were in the wrong bottles, such as Warfarin mixed in with Restoril. This may explain the elevated INR noted upon admission. Pharmacy spent a significant amount of time with the patient reviewing concerns about the medications and medication handling at home and recommended steps to help avoid similar problems in the future. Patient started on antibiotics due to suspected early infiltrate left lower lung. LFTs quite elevated at time of admission. Noted rapid improvement over course of stay. Suspect this is also related to medications that are both prescribed in addition to OTC cold meds patient was taken. Hgb noted to be low upon admission. Further drop noted that was felt to be likely dilutional in nature. However was noted to be positive for occult blood in stool. Patient denies dark stools/bloody stools or problems with hemorrhoids. Given Protonix. Has been placed on schedule for endoscopy for of this week. Patient did have INR of 4.5 initially, and this may have contributed to GI blood loss. INR is now within theraputic range. Will have patient continue to hold Warfarin until after colonoscopy. - Patient Instructions Diet: Usual Diet as Tolerated (Will need to start prep for endoscopy as scheduled. ) Activity: As Tolerated Driving: Do Not Drive Showering/Bathing: May Shower Other/Special Instructions: Follow up tomorrow at clinic in [place] at 2pm for pre-op physical and review of your medications. You will need your INR, hemoglobin, and liver function tests repeated this week. Begin prep as instructed for scheduled endoscopy this . Take medications as directed. No over the counter meds or Tylenol at this time. Recommend decreasing Restoril dose to 30mg instead of 45. Do not restart Warfarin until instructed to do so after endoscopy. - Discharge Plan Prescriptions/Med Rec: Azithromycin [IJP: Azithromycin] 250 mg PO DAILY #4 tab Ferrous Sulfate [Slow Release Iron] 160 mg PO DAILY #30 tab.er Pantoprazole Sodium [Protonix] 40 mg PO DAILY #30 tablet. traMADol [Ultram] 50 mg PO Q6H PRN #16 tablet PRN Reason: Pain Home Medications: Home Meds ClonazePAM [KlonoPIN] 0.5 mg PO BID 05/18/13 [History] Diltiazem HCl [Diltiazem 12Hr ER] 120 mg PO DAILY 05/18/13 [History] Lutein/Minerals/Vit A,C & E [Ocuvite] 2 tab PO DAILY 05/18/13 [History] Metoprolol Tartrate 25 mg PO DAILY 05/18/13 [History] Temazepam [Restoril] 45 mg PO BEDTIME PRN 05/18/13 [History] Calcium Carbonate/Vitamin D3 [Calcium 500 + Vit D 400] 1 tab PO DAILY 12/21/16 [ History] Digoxin [Digox] 125 mcg PO DAILY 12/21/16 [History] Lisdexamfetamine Dimesylate [Vyvanse] 50 mg PO DAILY 12/21/16 [History] Multivitamin [Multivitamins] 1 cap PO DAILY 12/21/16 [History] Vilazodone Hydrochloride [Viibryd] 40 mg PO DAILY 12/21/16 [History] Warfarin [Coumadin] 5 mg PO ASDIRECTED 12/21/16 [History] Ascorbic Acid [Vitamin C] 500 mg PO DAILY 12/22/16 [History] Melatonin 5 mg PO BEDTIME 12/22/16 [History] Azithromycin [IJP: Azithromycin] 250 mg PO DAILY #4 tab 12/23/16 [Rx] Ferrous Sulfate [Slow Release Iron] 160 mg PO DAILY #30 tab.er 12/23/16 [Rx] Pantoprazole Sodium [Protonix] 40 mg PO DAILY #30 tablet. 12/23/16 [Rx] traMADol [Ultram] 50 mg PO Q6H PRN #16 tablet 12/23/16 [Rx] Patient Handouts: Esophagogastroduodenoscopy, Colonoscopy, Ceftriaxone injection, Azithromycin for infusion Forms: ED Department Discharge Referrals: Lilliam Lake PA [Primary Care Provider] - - Discharge Summary/Plan Comment DC Time >30 min.: No - General Info Date of Service: 12/23/16 Admission Dx/Problem (Free Text: Admitted due to altered mental status. Also noted to have elevated LFTs, anemia as well as complaint of lightheadedness and recent falls. Recent URI symptoms. Noted to have elevated PT/INR while in ER. Mild improvement after Narcan in ER. Functional Status: Reports: Pain Controlled (still has left sided chest wall discomfort, Improved with Tramadol), Tolerating Diet, Ambulating, Urinating. Denies: New Symptoms - Review of Systems General: Reports: Fever (had low grade temp noted yesterday), Fatigue. Denies: Malaise, Chills, Night Sweats, Appetite HEENT: Reports: Rhinitis Pulmonary: Reports: Pleuritic Chest Pain (left sided chest pain is worse with deep breathing), Cough. Denies: Shortness of Breath, Hemoptysis, Wheezing Cardiovascular: Denies: Palpitations, Dyspnea on Exertion, Orthopnea, Edema Gastrointestinal: Reports: No Symptoms. Denies: Hematochezia, Melena Genitourinary: Reports: No Symptoms Musculoskeletal: Reports: No Symptoms Skin: Reports: No Symptoms Neurological: Reports: No Symptoms Psychiatric: Reports: No Symptoms - Patient Data Vitals - Most Recent: Last Vital Signs Temp 36.2 C 12/23/16 08:00 Pulse 70 12/23/16 08:50 Resp 17 12/23/16 08:00 BP 145/78 H 12/23/16 08:50 Pulse Ox 94 L 12/23/16 08:00 Weight - Most Recent: 66.088 kg I&O - Last 24 hours: Intake & Output 12/22/16 12/23/16 12/23/16 22:59 06:59 14:59 Intake Total 420 1120 Balance 420 1120 Lab Results - Last 24 hrs: Laboratory Results - last 24 hr 12/23/16 12/23/16 12/23/16 Range/Units 07:00 07:00 07:00 WBC 7.4 (4.0-10.2) K/uL RBC 3.36 L (3.77-5.09) M/uL Hgb 8.6 L (11.7-15.5) g/dL Hct 28.1 L (34.0-46.0) % MCV 83.6 L (84.0-98.0) fL MCH 25.6 L (28.2-33.3) pg MCHC 30.6 L (31.7-36.0) g/dL RDW 16.4 H (11.2-14.1) % Plt Count 323 (150-350) K/uL Neut % (Auto) 65.6 (45.0-80.0) % Lymph % (Auto) 24.4 (10.0-50.0) % Dougherty % (Auto) 8.8 (2.0-14.0) % Eos % (Auto) 1.1 (0.0-5.0) % Baso % (Auto) 0.1 (0.0-2.0) % Neut # (Auto) 4.87 (1.40-7.00) K/uL Lymph # (Auto) 1.81 (0.50-3.50) K/uL Dougherty # (Auto) 0.65 (0.00-1.00) K/uL Eos # (Auto) 0.08 (0.00-0.50) K/uL Baso # (Auto) 0.01 (0.00-0.20) K/uL PT 27.0 H D (9.8-11.7) SEC INR 2.4 Sodium 140 (136-145) mmol/L Potassium 3.8 (3.5-5.1) mmol/L Chloride 105 (98-107) mmol/L Carbon Dioxide 27.9 (21.0-32.0) mmol/L BUN 10 (7-18) mg/dL Creatinine 0.59 (0.51-1.17) mg/dL Est Cr Clr Drug Dosing 69.20 mL/min Estimated GFR (MDRD) > 60 mL/min Glucose 87 (74-106) mg/dL Calcium 9.4 (8.5-10.1) mg/dL Magnesium 1.8 (1.8-2.4) mg/dL Total Bilirubin 0.3 (0.2-1.0) mg/dL AST 87 H (15-37) U/L ALT 182 H (12-78) U/L Alkaline Phosphatase 297 H (46-116) IU/L Total Protein 6.1 L (6.4-8.2) g/dL Albumin 2.5 L (3.4-5.0) g/dL Digoxin 0.70 L (0.90-2.00) ng/mL Med Orders - Current: Current Medications Albuterol/Ipratropium (Duoneb 3.0-0.5 Mg/3 Ml) 3 ml NEB Q6HRRT [facility] Last Admin: 12/23/16 08:47 Dose: 3 ml Clonazepam (Klonopin) 0.5 mg PO BID [facility] Last Admin: 12/23/16 08:47 Dose: 0.5 mg Digoxin (Lanoxin) 125 mcg PO DAILY [facility] Last Admin: 12/23/16 08:48 Dose: 125 mcg Diltiazem HCl (Cardizem Cd) 120 mg PO DAILY [facility] Last Admin: 12/23/16 08:46 Dose: 120 mg Ferrous Sulfate (Slow Release Iron) 160 mg PO DAILY [facility] Last Admin: 12/23/16 08:51 Dose: 160 mg Meclizine HCl (Antivert) 25 mg PO Q6H PRN PRN Reason: Dizziness Melatonin (Melatonin) 5 mg PO BEDTIME [facility] Last Admin: 12/22/16 20:29 Dose: 5 mg Metoprolol Tartrate (Lopressor) 25 mg PO DAILY [facility] Last Admin: 12/23/16 08:50 Dose: 25 mg Lisdexamfetamine Dimesylate [Vyvanse] 50mg Caps 0 mg PO DAILY [facility] Last Admin: 12/23/16 08:49 Dose: 50 mg Vilazodone Hydrochloride [ Viibryd] 40mg 0 mg PO DAILY [facility] Last Admin: 12/23/16 08:52 Dose: 40 mg Sodium Chloride (Saline Flush) 10 ml FLUSH ASDIRECTED PRN PRN Reason: Keep Vein Open Last Admin: 12/22/16 21:29 Dose: 10 ml Sodium Chloride (Saline Flush) 10 ml FLUSH Q12HR [facility] Last Admin: 12/23/16 08:50 Dose: 10 ml Tramadol HCl (Ultram) 50 mg PO Q6H PRN PRN Reason: Pain Last Admin: 12/22/16 20:55 Dose: 50 mg Discontinued Medications Digoxin (Lanoxin) 250 mcg PO ONETIME ONE Stop: 12/22/16 00:58 Last Admin: 12/22/16 02:04 Dose: 250 mcg Sodium Chloride (Normal Saline) 1,000 mls @ 200 mls/hr IV .BOLUS ONE Stop: 12/22/16 05:53 Last Admin: 12/22/16 02:03 Dose: 200 mls/hr Azithromycin 500 mg/ Sodium (Chloride) 250 mls @ 250 mls/hr IV ONETIME ONE Stop: 12/22/16 21:38 Last Admin: 12/22/16 21:30 Dose: 250 mls/hr Ceftriaxone Sodium 1 gm/ (Sodium Chloride) 100 mls @ 200 mls/hr IV ONETIME ONE Stop: 12/22/16 21:08 Last Admin: 12/22/16 20:56 Dose: 200 mls/hr Naloxone HCl (Narcan) Confirm Administered Dose 0.4 mg .ROUTE .STK-MED ONE Stop: 12/21/16 22:55 Last Admin: 12/21/16 22:58 Dose: Not Given Naloxone HCl (Narcan) 0.4 mg IVPUSH ONETIME ONE Stop: 12/21/16 22:46 Last Admin: 12/21/16 22:58 Dose: 0.4 mg Non-Formulary Medication (Lisdexamfetamine Dimesylate [Vyvanse]) 50 mg PO DAILY [facility] Last Admin: 12/22/16 14:41 Dose: Not Given Non-Formulary Medication (Vilazodone Hydrochloride [Viibryd]) 40 mg PO BID [facility] Last Admin: 12/22/16 14:41 Dose: Not Given Non-Formulary Medication (Vilazodone Hydrochloride [Viibryd]) 40 mg PO DAILY [facility] Last Admin: 12/22/16 14:42 Dose: Not Given Non-Formulary Medication (Vilazodone Hydrochloride [Viibryd]) 0 mg PO DAILY [facility] Non-Formulary Medication (Lisdexamfetamine Dimesylate [Vyvanse]) 0 mg PO DAILY [facility] Tramadol HCl (Ultram) 50 mg PO ONETIME ONE Stop: 12/22/16 09:51 Last Admin: 12/22/16 10:19 Dose: 50 mg - Exam General: Reports: Alert, Oriented, Cooperative, No Acute Distress HEENT: Reports: Pupils Equal, Pupils Reactive, EOMI, Mucous Membr. Moist/[place] Neck: Reports: Supple Lungs: Reports: Normal Respiratory Effort, Rhonchi (mild, left lower lung). Denies: Rales, Rub, Stridor, Wheezing Cardiovascular: Reports: Regular Rhythm GI/Abdominal Exam: Normal Bowel Sounds, Soft, Non-Tender, No Distention (Female) Exam: Deferred Rectal (Female) Exam: Normal Rectal Tone, Heme + Stool Back Exam: Denies: CVA Tenderness (L), CVA Tenderness (R) Extremities: Non-Tender, Normal Capillary Refill Skin: Reports: Warm, Dry, Intact Neurological: Reports: No New Focal Deficit Psy/Mental Status: Reports: Alert, Normal Affect, Normal Mood *Q Meaningful Use (DIS) - VTE *Q VTE Criteria *Q: - Stroke *Q Stroke Criteria *Q: - AMI *Q AMI Criteria *Q:
[2016-12-23] MEDS ORDERED: Pantoprazole 40 MG Vial IVPUSH ONE (14:20)
== END 2016-12-23 15:50 | disposition home or self-care (01) ==
LOC: LL.ED 22:47 → UNDOADMOB 23:55 → LL.MS 23:55 → UNDODISOB 12-23 15:50
PROVIDERS: ADMIT Emergency Medicine; ATTEND Emergency Medicine
DX: D50.9 Iron deficiency anemia, unspecified (principal); R42 Dizziness and giddiness; R79.1 Abnormal coagulation profile; J98.8 Other specified respiratory disorders; I10 Essential (primary) hypertension; F41.8 Other specified anxiety disorders; G47.00 Insomnia, unspecified; I48.91 Unspecified atrial fibrillation; M19.90 Unspecified osteoarthritis, unspecified site; R07.81 Pleurodynia; R19.5 Other fecal abnormalities; Z98.84 Bariatric surgery status; Z79.01 Long term (current) use of anticoagulants; Z79.899 Other long term (current) drug therapy
CPT/HCPCS: 36415; 70450; 71101; 80053; 80162; 81001; 82140; 82652; 82728; 83540; 83550; 83735; 85025; 85610; 94640; 96365; 96366; 96374; 96375; 97161; 99285; A9270; C9113; G0378; J0456; J0696; J2310; J7030; J7050; 82272; 99217; 99220; 99225

== ENCOUNTER 2016-12-26 08:03 | Day surgery (SDC) | payer MEDICARE, OTHER ==
[~2016-12-26 08:03] MED LIST changes: +Lactated Ringers 1,000 ML IV SCH; -Naloxone 0.4 MG/ML SDV IVPUSH ONE; +Sodium Chloride 0.9% 10 ML Syringe FLUSH PRN
[2016-12-26] MEDS ORDERED: fentaNYL 100 MCG/2 ML SDV ONE ×2 (08:45→09:05)
[2016-12-26] MEDS ORDERED: Midazolam 1 MG/ML 2 ML SDV ONE ×2 (08:45→09:05)
[2016-12-26] MEDS ORDERED: Propofol 200 MG/20 ML SDV ONE ×2 (08:46→09:05)
[2016-12-26] MEDS ORDERED: Lidocaine 2% 5 ML SDV ONE (09:05)
--- NOTE | 2016-12-26 09:06 | PCM.PN ---
- General Info Date of Service: 12/26/16 - Review of Systems Systems Review Comment:: 76 y/o female referred from Rohan Gerardo for EGD and Colonoscopy because of anemia and guiac positive stools. She is medically stable to proceed with no recent significant changes to her health status since her recent admission. I have discussed the proposed upper and lower endoscopy with the patient. Risks reviewed included but were not limited to bleeding and GI injury. She has had a previous colonoscopy about 5 years ago. She agrees to proceed. - Patient Data Vitals - Most Recent: Last Vital Signs Temp 97.8 F 12/26/16 08:23 Pulse 78 12/26/16 08:23 Resp 20 12/26/16 08:23 BP 148/73 H 12/26/16 08:23 Pulse Ox 100 12/26/16 08:23 Weight - Most Recent: 62.596 kg Med Orders - Current: Current Medications Lactated Ringer's (Ringers, Lactated) 1,000 mls @ 125 mls/hr IV ASDIRECTED ISABELLA Last Admin: 12/26/16 08:51 Dose: 125 mls/hr Sodium Chloride (Saline Flush) 10 ml FLUSH ASDIRECTED PRN PRN Reason: Keep Vein Open Discontinued Medications Fentanyl (Sublimaze) Confirm Administered Dose 100 mcg .ROUTE .STK-MED ONE Stop: 12/26/16 08:46 Midazolam HCl (Versed 1 Mg/Ml) Confirm Administered Dose 2 mg .ROUTE .STK-MED ONE Stop: 12/26/16 08:46 Propofol (Diprivan 20 Ml) Confirm Administered Dose 400 mg .ROUTE .STK-MED ONE Stop: 12/26/16 08:47 - Problem List Review Problem List Initiated/Reviewed/Updated: Yes - My Orders Last 24 Hours: My Active Orders 12/26/16 08:00 Patient Status [ADT] Routine Peripheral IV Care [RC] . DIRECTED Verify Patient Consent Obtain [RC] ASDIRECTED Lactated Ringers [Ringers, Lactated] 1,000 ml IV ASDIRECTED Sodium Chloride 0.9% [Saline Flush] 10 ml FLUSH ASDIRECTED PRN Peripheral IV Insertion Adult [OM.PC] Routine - Assessment Assessment:: Anemia and guaiac positive stools - Plan Plan:: EGD and colonoscopy
--- NOTE | 2016-12-26 10:07 | PCM.OPNOTE ---
- General Post-Op/Procedure Note Date of Surgery/Procedure: 12/26/16 Operative Procedure(s): EGd and Colonoscopy with Polypectomy Findings: Normal appearing post gastric bypass upper endoscopy Splenic Flexure polyp with otherwise normal appearing colon Pre Op Diagnosis: Anemia Post-Op Diagnosis: Colon Polyp Anesthesia Technique: MAC Primary Surgeon: Cale Cintron Pathology: Colon Polyp Output, Urine Amount: 0 EBL in mLs: 0 Complications: None Condition: Good Free Text/Narrative:: Intake & Output 12/25/16 12/26/16 12/26/16 22:59 06:59 14:59 Intake Total 950 Balance 950
[2016-12-26 10:39] VITALS: BP 164/83
--- NOTE | 2016-12-26 14:10 | OR ---
Date of Procedure: 12/26/2016 PREOPERATIVE DIAGNOSES: Anemia and guaiac-positive stools. POSTOPERATIVE DIAGNOSES: Normal post-gastric bypass upper endoscopy and colon polyp. OPERATION PERFORMED: Esophagogastroduodenoscopy and colonoscopy with polypectomy. INDICATIONS FOR SURGERY: This 76-year-old female, who was noted during recent admission to have anemia as well as guaiac-positive stools. She denies any recent GI symptoms and is referred for upper and lower endoscopy. FINDINGS: On upper endoscopy, the normal post-gastric bypass anatomy is viewed. The esophageal lining appeared normal without visible inflammation. The gastric pouch also appeared normal with no visible signs of ulcers or inflammation. The gastrojejunal anastomosis was widely patent with no sign of ulceration and the jejunum appeared normal as well. During colonoscopy, a moderate-sized splenic flexure polyp was noted. The remainder of the colon appears normal. I did not see any signs on either exam to explain the patient's anemia or guaiac-positive stools. PROCEDURE IN DETAIL: The patient was taken to the operating room. She was given intravenous sedation and her throat was topically anesthetized. With her in the left lateral decubitus position. The esophagus was intubated. With the Olympus gastroscope, this was carefully advanced down through the esophagus to the gastric pouch and then easily advanced into the jejunal limb. The scope was advanced down the jejunum as far as could safely be performed with no jejunal abnormalities being seen. The scope was withdrawn back up into the stomach where careful examination of the gastric pouch in the GE junction was performed. The esophagus was then re-examined as the scope was withdrawn. After completing the upper endoscopy, attention was turned to colonoscopy. Digital rectal exam was performed showing no rectal masses. The Olympus colonoscope was inserted into the rectum. Retroflexed examination of the rectal canal was performed. The scope was then carefully advanced under direct visualization through the entire length of the colon until the cecum was reached. This did require hand pressure, but with careful persistent manipulation, the cecum was able to be reached. Cecal acquisition was confirmed by noting the normal internal cecal anatomy including the ileocecal valve and also identifying the light to transilluminate the abdominal wall in the right lower quadrant. The cecum was carefully examined and then the scope was slowly withdrawn sequentially re- examining the colonic segments. At the splenic flexure, the above-described polyp was identified. This was removed with a cautery snare and retrieved into a polyp trap. The scope was then further withdrawn completing the examination and then the scope was removed. The patient was then taken from the operating room in satisfactory condition. ESTIMATED BLOOD LOSS: Zero. COMPLICATIONS: None. PROGNOSIS: Good. ROBYN Cintron MD /[id number] MTDD
== END 2016-12-26 11:15 | disposition home or self-care (01) ==
LOC: LL.SDS 08:03
PROVIDERS: ATTEND Surgery
DX: D12.3 Benign neoplasm of transverse colon (principal); I10 Essential (primary) hypertension; K21.9 Gastro-esophageal reflux disease without esophagitis; E78.00 Pure hypercholesterolemia, unspecified; F33.9 Major depressive disorder, recurrent, unspecified; Z88.8 Allergy status to other drugs, medicaments and biological substances; Z91.040 Latex allergy status; Z91.09 Other allergy status, other than to drugs and biological substances; Z98.84 Bariatric surgery status; Z79.01 Long term (current) use of anticoagulants; Z79.899 Other long term (current) drug therapy
CPT/HCPCS: 00740; 43239; 45385; J2250; J2704; J3010; J7120; 88305

== ENCOUNTER 2019-09-09 09:25 | Day surgery (SDC) | payer MEDICARE, OTHER ==
[~2019-09-09 09:25] MED LIST changes: -Lactated Ringers 1,000 ML IV SCH; +Midazolam 1 MG/ML 2 ML SDV ONE; +Propofol 200 MG/20 ML SDV ONE; -Sodium Chloride 0.9% 10 ML Syringe FLUSH PRN
[2019-09-09] MEDS ORDERED: Lactated Ringers 1,000 ML IV SCH (10:45)
[2019-09-09] MEDS ORDERED: Sodium Chloride 0.9% 10 ML Syringe FLUSH PRN (10:45)
[2019-09-09] MEDS ORDERED: Midazolam 1 MG/ML 2 ML SDV ONE (12:52)
[2019-09-09] MEDS ORDERED: Propofol 200 MG/20 ML SDV ONE (12:52)
[2019-09-09] MEDS ORDERED: Lidocaine 2% 5 ML SDV ONE (12:52)
[2019-09-09 15:49] VITALS: BP 143/62; PULSE 56
--- NOTE | 2019-09-09 19:26 | OR ---
Date of Procedure: 09/09/2019 PREOPERATIVE DIAGNOSIS: Hemoccult-positive stool. POSTOPERATIVE DIAGNOSIS: 1. Normal upper endoscopy. 2. Normal colonoscopy. PROCEDURES: 1. Upper endoscopy. 2. Colonoscopy. ANESTHESIA: IV sedation. PROCEDURE IN DETAIL: The patient was brought to the procedure room where she was placed on her left side and IV sedation administered. Oral bite block was placed and the upper endoscope advanced into the esophagus under direct vision without difficulty. Vocal cords were viewed and were normal. The scope was advanced through the esophagus into the stomach pouch. Evidence of a gastric bypass surgery was evident. Both of the jejunal anastomoses appeared normal. I did follow the efferent limb for approximately 10 cm, which was normal. Retroflexion is normal. There were no marginal ulcerations or other source of bleeding. Air was removed from the stomach pouch and the scope withdrawn through the esophagus, which is normal. The patient tolerated this portion of the procedure well. Next, colonoscopy was performed after digital rectal exam was done, which was normal. Colonoscope was inserted and advanced to the level of the cecum with some difficulty getting through the ascending colon, requiring pressure on the abdomen and changing to the supine position. I was able to reach the cecum and intubate the terminal ileum. Appendiceal lumen was visualized. Prep was fair with some thick liquid stool remaining that was mostly irrigated and suctioned. Upon withdrawing the scope, the ascending, transverse, and descending colon were normal in appearance. Sigmoid colon was quite tortuous, but otherwise normal. Rectum was normal and retroflexion was normal. Air was removed and the scope withdrawn. Patient tolerated the procedure well, returned to recovery in stable condition. No source of blood loss was identified on her scope. No further routine colon screenings are necessary due to age. ROBYN CESPEDES MD /[id number]
== END 2019-09-09 14:50 | disposition home or self-care (01) ==
LOC: LL.SDS 09:25
PROVIDERS: ATTEND Surgery
DX: R19.5 Other fecal abnormalities (principal); R10.32 Left lower quadrant pain; Q43.8 Other specified congenital malformations of intestine; F32.9 Major depressive disorder, single episode, unspecified; K21.9 Gastro-esophageal reflux disease without esophagitis; D63.1 Anemia in chronic kidney disease; E78.00 Pure hypercholesterolemia, unspecified; F33.9 Major depressive disorder, recurrent, unspecified; E78.5 Hyperlipidemia, unspecified; I12.9 Hypertensive chronic kidney disease with stage 1 through stage 4 chronic kidney disease, or unspecified chronic kidney disease; N18.9 Chronic kidney disease, unspecified; I48.20 Chronic atrial fibrillation, unspecified; Z98.84 Bariatric surgery status; Z79.01 Long term (current) use of anticoagulants; Z98.890 Other specified postprocedural states; Z91.040 Latex allergy status; Z79.899 Other long term (current) drug therapy
CPT/HCPCS: 43235; 45378; J2001; J2250; J2704

== ENCOUNTER 2021-02-01 | Emergency (ER) | payer MEDICARE, OTHER ==
[2021-02-01 00:19] VITALS: PULSE 61
--- NOTE | 2021-02-01 00:35 | EDM.PDOC ---
ED HPI GENERAL MEDICAL PROBLEM - General Chief Complaint: Abdominal Pain Stated Complaint: ABDOMINAL PAIN Time Seen by Provider: 02/01/21 00:24 Source of Information: Reports: Patient History Limitations: Reports: No Limitations - History of Present Illness INITIAL COMMENTS - FREE TEXT/NARRATIVE: Sharp right sided abd pain that radiated to left abdomen. Started after evening meal. Had a anahy melt at a restaurant. Nausea/2 emesis. Is now feeling much better. Pain resolved. No more nausea. No fevers. [place] fine earlier today. Has pending workups in [place] for upper endoscopy/lower GI due to some intermittent pain issues that are nonspecific. Hx gastric bypass years ago. Denies constipation. No diarrhea. No UTI complaints. No other acute complaints. - Related Data Allergies Allergy/AdvReac Type Severity Reaction Status Date / Time amphetamine [From Adderall] Allergy Tachycardia Verified 02/01/21 00:03 dextroamphetamine Allergy Tachycardia Verified 02/01/21 00:03 [From Adderall] latex Allergy rash,itchin Verified 02/01/21 00:03 g bandaids Allergy Severe rash, hives Uncoded 02/01/21 00:03 Home Meds: Home Meds ClonazePAM [KlonoPIN] 0.5 mg PO DAILY 05/18/13 [History] Lutein/Minerals/Vit A,C & E [Ocuvite] 2 tab PO DAILY 05/18/13 [History] Metoprolol Tartrate 25 mg PO BID 05/18/13 [History] Calcium Carbonate/Vitamin D3 [Calcium 500 + Vit D 400] 1 tab PO QPM 12/21/16 [History] Digoxin [Digox] 125 mcg PO DAILY 12/21/16 [History] Multivitamin [Multivitamins] 1 cap PO DAILY 12/21/16 [History] Temazepam 30 mg PO BEDTIME PRN 12/25/16 [History] Acetaminophen 650 mg PO Q4HR PRN 09/08/19 [History] Apixaban [Eliquis] 5 mg PO BID 09/08/19 [History] Baclofen 10 mg PO TID 09/08/19 [History] Cholecalciferol (Vitamin D3) [Vitamin D3] 1,000 unit PO DAILY 09/08/19 [History] ClonazePAM [KlonoPIN] 0.25 mg PO BEDTIME 09/08/19 [History] Fish Oil/[place]-3 Fatty Acids [Fish Oil 1,000 MG] 1 gm PO DAILY 09/08/19 [History] L.acidoph,Paracasei, B.lactis [Probiotic] 1 cap PO DAILY 09/08/19 [History] Lisdexamfetamine Dimesylate [Vyvanse] 40 mg PO DAILY 09/08/19 [History] Losartan [Cozaar] 50 mg PO DAILY 09/08/19 [History] Vilazodone [Viibryd] 40 mg PO DAILY 09/08/19 [History] Vitamin E 100 unit PO DAILY 09/08/19 [History] atorvaSTATin [Lipitor] 10 mg PO BEDTIME 09/08/19 [History] buPROPion [Wellbutrin SR] 100 mg PO DAILY 09/08/19 [History] hydroCHLOROthiazide [Hydrochlorothiazide] 25 mg PO DAILY 09/08/19 [History] Omeprazole 40 mg PO DAILY 09/09/19 [History] Past Medical History HEENT History: Reports: Impaired Vision Other HEENT History: wears glasses. 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 ED EXAM, GENERAL - Physical Exam Exam: See Below Exam Limited By: No Limitations General Appearance: Alert, WD/WN, No Apparent Distress Eye Exam: Bilateral Eye: EOMI, PERRL Ears: Normal External Exam, Normal Canal, Hearing Grossly Normal Nose: No: Nasal Deformity, Nasal Swelling, Nasal Drainage Throat/Mouth: Normal Lips, Normal Voice, No Airway Compromise Head: Atraumatic, Normocephalic Neck: Normal Inspection, Supple, Non-Tender, Full Range of Motion Respiratory/Chest: No Respiratory Distress, Lungs Clear, Normal Breath Sounds, No Accessory Muscle Use, Chest Non-Tender Cardiovascular: Normal Peripheral Pulses, Regular Rate, Rhythm, No Edema, No Murmur GI/Abdominal: Normal Bowel Sounds, Soft, No Distention, Tender (mild diffuse tenderness/non-focal), Abnormal Bowel Sounds. No: Guarding, Rigid, Rebound (Female) Exam: Deferred Rectal (Female) Exam: Deferred Back Exam: Normal Inspection Extremities: Normal Inspection, Normal Range of Motion, Non-Tender, Normal Capillary Refill Neurological: Alert, Oriented, Normal Cognition, Normal Gait, No Motor/Sensory Deficits Psychiatric: Normal Affect, Normal Mood Skin Exam: Warm, Dry, Intact, Normal Color Course - Vital Signs Last Recorded V/S: Last Vital Signs Temp 36.6 C 02/01/21 00:00 Pulse 61 02/01/21 00:00 Resp 18 02/01/21 00:00 BP 156/92 H 02/01/21 00:00 Pulse Ox 100 02/01/21 00:00 - Orders/Labs/Meds Orders: Active Orders 24 hr Category Date Time Status Abdomen 2V AP Flat Upright [CR] Stat Exams 02/01/21 00:06 Ordered AMYLASE [CHEM] Stat Lab 02/01/21 00:07 Ordered CBC WITH AUTO DIFF [HEME] Stat Lab 02/01/21 00:06 Ordered CMP [COMPREHENSIVE METABOLIC PN,CMP] [CHEM] Stat Lab 02/01/21 00:07 Ordered LACTIC ACID [CHEM] Stat Lab 02/01/21 00:07 Ordered LIPASE [CHEM] Stat Lab 02/01/21 00:07 Ordered UA RFX KAYLIN AND CULT IF INDIC [URIN] Stat Lab 02/01/21 00:07 Ordered - Re-Assessments/Exams Free Text/Narrative Re-Assessment/Exam: 02/01/21 01:17 abdominal films/labs ordered. No obstruction noted on xray. Large amount colonic air on right. Moderate stool on left. Labs unremarkable. Patient remained pain-free. Uncertain as to specific etiology. May be constipation given the colonic air/stool. May be motility-related. As stated in HPI, patient has pending GI referral to evaluate intermittent pain she has been having. She feels pain tonight was different. Plan at this time is to let her go home and observe for changes. If she notices a pattern of abdominal discomfort after eating/drinking she may try Mag Citrate to promote a bowel movement and see if that results in overall improvement. She is to return to ER if she has sudden worsening problems. Otherwise to follow through with planned GI evaluation. BP improved. Departure - Departure Time of Disposition: 01:21 Disposition: Home, Self-Care 01 Condition: Good Clinical Impression: Abdominal pain Qualifiers: Abdominal location: generalized Qualified Code(s): R10.84 - Generalized abdominal pain - Discharge Information *PRESCRIPTION DRUG MONITORING PROGRAM REVIEWED*: Not Applicable *COPY OF PRESCRIPTION DRUG MONITORING REPORT IN PATIENT ANGELICA: Not Applicable Instructions: Abdominal Pain, Adult Referrals: Priyanka Perez PA-C [Primary Care Provider] - Additional Instructions: See if the pain returns, particularly if it seems to act up after eating/drinking. If it does, it would be useful to rule out constipation as we discussed in the ER. 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 Some people do better if they mix a bottle with a packet of Miralax. If you do that, drink only 1/2 of the bottle one day, with the option of drinking the other half the second day. If pain does not seem to improve after that, then the issue is not likely constipation. Follow up as needed in clinic or ER for ongoing issues. Return to ER if you hav e sudden worsening problems develop again. Sepsis Event Note (ED) - Evaluation Sepsis Screening Result: No Definite Risk - Focused Exam Vital Signs: Vital Signs Temp Pulse Resp BP Pulse Ox 02/01/21 00:00 36.6 C 61 18 156/92 H 100 - My Orders Last 24 Hours: My Active Orders 02/01/21 00:06 Abdomen 2V AP Flat Upright [CR] Stat CBC WITH AUTO DIFF [HEME] Stat 02/01/21 00:07 AMYLASE [CHEM] Stat CMP [COMPREHENSIVE METABOLIC PN,CMP] [CHEM] Stat LACTIC ACID [CHEM] Stat LIPASE [CHEM] Stat UA RFX KAYLIN AND CULT IF INDIC [URIN] Stat - Assessment/Plan Last 24 Hours: My Active Orders 02/01/21 00:06 Abdomen 2V AP Flat Upright [CR] Stat CBC WITH AUTO DIFF [HEME] Stat 02/01/21 00:07 AMYLASE [CHEM] Stat CMP [COMPREHENSIVE METABOLIC PN,CMP] [CHEM] Stat LACTIC ACID [CHEM] Stat LIPASE [CHEM] Stat UA RFX KAYLIN AND CULT IF INDIC [URIN] Stat
[2021-02-01 00:43] LABS: CHLORIDE,CL 106 mmol/L (98-107); SODIUM,NA 140 mmol/L (136-145)
[2021-02-01 00:45] LABS: ANION GAP 11.3 meq/L (7-15)
[2021-02-01 01:40] VITALS: BP 151/76
== END 2021-02-01 00:35 | disposition home or self-care (01) ==
LOC: LL.ED
DX: R10.84 Generalized abdominal pain (principal); I48.91 Unspecified atrial fibrillation; E78.00 Pure hypercholesterolemia, unspecified; I10 Essential (primary) hypertension; M19.90 Unspecified osteoarthritis, unspecified site; Z88.6 Allergy status to analgesic agent; Z88.8 Allergy status to other drugs, medicaments and biological substances; Z91.040 Latex allergy status; Z91.048 Other nonmedicinal substance allergy status; Z79.01 Long term (current) use of anticoagulants; Z79.899 Other long term (current) drug therapy
CPT/HCPCS: 36415; 74019; 80053; 81003; 82150; 83605; 83690; 85025; 99284; 99284-25

== ENCOUNTER 2022-10-10 10:25 | Day surgery (SDC) | payer MEDICARE, OTHER ==
[~2022-10-10 10:25] MED LIST changes: -Midazolam 1 MG/ML 2 ML SDV ONE
[2022-10-10] MEDS ORDERED: Sodium Chloride 0.9% 10 ML Syringe FLUSH PRN (10:45)
[2022-10-10] MEDS: Lactated Ringers 1,000 ML IV SCH (10:56)
[2022-10-11 14:42] VITALS: BP 119/83; PULSE 68
== END 2022-10-10 13:10 | disposition home or self-care (01) ==
LOC: LL.SDS 10:25
PROVIDERS: ATTEND Surgery
DX: R13.10 Dysphagia, unspecified (principal); K21.9 Gastro-esophageal reflux disease without esophagitis; I48.91 Unspecified atrial fibrillation; F41.9 Anxiety disorder, unspecified; F32.A Depression, unspecified; E78.5 Hyperlipidemia, unspecified; I10 Essential (primary) hypertension; G47.30 Sleep apnea, unspecified; E66.9 Obesity, unspecified; Z91.040 Latex allergy status; Z88.8 Allergy status to other drugs, medicaments and biological substances; Z98.84 Bariatric surgery status; Z79.899 Other long term (current) drug therapy; Z79.01 Long term (current) use of anticoagulants; Z68.24 Body mass index [BMI] 24.0-24.9, adult
CPT/HCPCS: 43249; J2704; J7120; 00731